=== PATIENT | male | born 1960 | race Caucasian/White ===

== ENCOUNTER 2018-12-02 05:22 | Day surgery (SDC) | payer BC, OTHER ==
[~2018-12-02] VITALS: Ht 170.2 cm; Wt 70.3 kg
[~2018-12-02 05:22] MED LIST: AMLODIPINE BESY10 MG PO; FINASTERIDE1 MG PO; LOTENSIN20 MG PO; PEPCID AC10 MG PO; ZYRTEC10 M5 PO
[2018-12-02 11:43] LABS: HEMATOCRIT 43.6 % (42.0-52.0); HEMOGLOBIN 15.1 gm/dL (14.0-18.0)
[2018-12-02 12:17] VITALS: BP 135/83
[2018-12-02] MEDS ORDERED: SENOKOT-S TABL1 EACH PO (15:07)
[2018-12-02] MEDS ORDERED: NEURONTIN 300300 M1 PO (15:07)
[2018-12-02] MEDS ORDERED: NORCO 5-325 TA1 EACH PO (15:07)
[2018-12-02 15:29] VITALS: BP 135/83
--- NOTE | 2018-12-02 18:05 | EKG ---
[address] [address] ELECTROCARDIOGRAM REPORT Name: ZACH KENDRICK Room #: DEP [facility]#: [id number] ������������������ Admission: 12/02/18 ������������������ Attend Phys: Kd Fernando MD, Discharge: 12/02/18 ������������������ Date of : 62 Report #: [id number] ����������������������������������������������������������������� [id number] THIS REPORT FOR: //name// [facility] Test Date: 2018-12-02 Test Time: 11:41:10 Pat Name: ZACH KENDRICK Department: Room: [facility] 4 Gender: M [employer]ent Acquisition Director: SANDHYA : 1960 Requested By: Kd Fernando Order Number: [id number] MD: Daniele Magallanes Measurements Intervals [place] Rate: 57 P: 62 [place]: 179 QRS: 43 QRSD: 86 T: 18 QT: 408 QTc: 398 Interpretive Statements Sinus bradycardia Otherwise no significant abnormality No previous ECG available for comparison Electronically Signed On 12-02-2018 18:05:31 CDT by Daniele Magallanes [email or web address] ��������������������������������������������� <ELECTRONICALLY SIGNED> ���������������������������������������� By: Daniele Magallanes MD, [facility] ��������������������������������������������� 12/02/18 1805 1141 1141 Daniele Magallanes MD, FACC /EPI
--- NOTE | 2018-12-07 10:07 | PATH ---
[facility] [address] [place] [address] PATHOLOGY RPT PROCEDURE Name: MICHELE CORDON Room #: DEP [facility] M.R.#: [id number] ������������������ Admission: 12/02/18 ������������������ Date of : 62 Discharge: 12/02/18 Report #: [id number] Path Case #: [id number] [facility] Accession Number: [id number] . 01 Material submitted: . LEFT CORD LIPOMA . 01 Clinical history: . Bilateral inguinal hernia . 02 Diagnosis: Mature adipose tissue, left cord lipoma, excision: - Compatible with a lipoma. - Adjacent fibrovascular connective tissue showing congestion. . (IUV:mml; 12/03/2018) QLM/12/03/2018 . 02 Electronically signed: . Terri Molina MD, Pathologist NPI- [id number] . 01 Gross description: . The specimen is received in formalin, labeled "Michele Cordon, left cord lipoma", is an irregular fragment of yellow-rodas, adipose tissue partially partially covered by a thin butler-white membrane measuring 4.2 x 2.2 x 1.0 cm. No discrete necrosis is identified. District Or District Office Director tissue is submitted in A1. (SWS; 12/02/2018) SHS/SHS . 02 Pathologist provided ICD-10: D17.6 . 02 CPT . 014052 Specimen Comment: A courtesy copy of this report has been sent to Specimen Comment: [phone], , . Specimen Comment: Report sent to DR SALDAÑA,DR FELIPE / DR YEN Specimen Comment: A duplicate report has been generated due to demographic updates. Performed at: [address] [place] [id number] [id number] MD Yao Cruz MD Phone: [phone] Performed at: [address] [address] PATHOLOGY RPT PROCEDURE Name: MICHELE CORDON Room #: DEP [facility].R.#: [id number] ������������������ Admission: 12/02/18 ������������������ Date of : 62 Discharge: 12/02/18 Report #: [id number] Path Case #: [id number] [address] [place] [address] [id number] MD Terri Molina MD Phone: [phone]
--- NOTE | 2018-12-15 09:00 | O ---
[facility] [place] [address] OPERATIVE REPORT Name: ZACH KENDRICK Room #: DEP [facility] M.R.#: [id number] Admission: 12/02/18 ������������������ Attend Phys: Kd Fernando MD, Discharge: 12/02/18 ������������������ Date of : 62 Report #: [id number] THIS REPORT FOR: //name// CC: Kd Crawfordtha Perez DATE OF SERVICE: 12/02/2018 PREOPERATIVE DIAGNOSIS: Bilateral inguinal hernias. POSTOPERATIVE DIAGNOSIS: Bilateral inguinal hernias. PROCEDURE: Laparoscopic totally extraperitoneal (TEP) repair of bilateral indirect inguinal hernias with mesh. SURGEON: Kd Fernando MD MET[employer] P[employer]CH PRESS OPERATOR: Erick Chen MD ANESTHESIA: General endotracheal anesthesia. ESTIMATED BLOOD LOSS: Minimal (less than 5 mL). COMPLICATIONS: None appreciated. SPECIMENS: Left cord lipoma. INDICATIONS: The patient is a 58-year-old male, who presented with significant bulging and discomfort in bilateral groins, worse on the patient's right versus left side. After thorough evaluation, he had easily palpable bilateral inguinal hernias and as such, indication was for the above-mentioned procedure today. DESCRIPTION OF PROCEDURE: After explaining the risks, benefits and alternatives of the procedure with the patient in detail in the preoperative holding area and obtaining written consent, the patient was brought to the operating room and placed supine on the operating room table. After conducting a thorough timeout procedure verifying correct patient and procedure, the patient was given general endotracheal anesthesia. Once adequate anesthesia was obtained, his SCDs were hooked up to pneumatic compression device. He was given a preoperative dose of antibiotics in line with the SCIP protocol. The patient's abdomen was prepped and draped in standard surgical sterile fashion. A 5 mL of 0.5% Marcaine with epinephrine were used to anesthetize the skin in the infraumbilical location just to left of midline. A #15 bladed scalpel was used to create a 1.5 cm curvilinear incision at this location. Electrocautery was used to carry this down through the skin and subcutaneous tissues to ensure hemostasis until I [address] [address] OPERATIVE REPORT Name: ZACH KENDRICK Room #: DEP [facility] M.R.#: [id number] Admission: 12/02/18 ������������������ Attend Phys: Kd Fernando MD, Discharge: 12/02/18 ������������������ Date of : 62 Report #: [id number] arrived upon the anterior rectus fascia. The fascia was scored transversely revealing the left rectus muscle posteriorly. The rectus muscle was swept laterally and I placed the Spacemaker Plus balloon dissector device in an immediate retrorectus location, slid this down to the pubic tubercle. The obturator for the Spacemaker plus port was removed and the preperitoneal space was fully developed under direct vision with the balloon hand insufflator using a 10 mm 0-degree laparoscope. Once preperitoneal space was developed, the laparoscope was removed, the balloon was deflated and removed and the preperitoneal space was fully insufflated to 15 mmHg using carbon dioxide gas. The laparoscope was changed to a 10 mm 30-degree laparoscope, which was reintroduced through the Spacemaker plus port. We had complete hemostasis in the preperitoneal space. I now placed two 5 mm working trocars down the lower midline under direct vision after anesthetizing the skin at each location with 5 mL of 0.5% Marcaine with epinephrine, I had created small skin nicks. We turned our attention to the patient's left side first. The patient was placed in Trendelenburg with left side elevated. I now dissected out the left groin using a combination of blunt dissection and hook electrocautery to sweep the peritoneum posteriorly and superiorly. Hernia sac was seen to run with the cord structures. This was stripped back down into an intra-abdominal location and carried this low on the pelvic brim as possible. All cord structures were identified, preserved and uninjured throughout. A piece of ProGrip mesh tailored to the left groin was rolled up, placed in preperitoneal space where it was maneuvered into position. This was pressed into the abdominal wall and then unrolled inferiorly giving me excellent overlap outside the hernia defect in question. We now turned our attention to the patient's right side. In similar fashion, the patient was elevated with right side up and I dissected out the right groin space. The hernia sac was slightly larger and I was able to reduce this in full as low in the pelvic brim as possible once again. Again, all cord structures were identified, preserved and uninjured throughout. A piece of ProGrip mesh this time tailored to the right groin was rolled up, placed in the preperitoneal space where it was maneuvered into position. It was unrolled inferiorly again giving us excellent overlap outside the hernia defect in question. One final evaluation of the intra-abdominal domain showed no further evidence of pathology. We had complete hemostasis. Spacemaker plus port was deflated and removed. The preperitoneal space was fully desufflated. We had no pneumoperitoneum noted. I now proceeded to close the anterior rectus fascial defect using two separate [id number] sutures using 0 PDS suture. A 4-0 Monocryl was used in a standard subcuticular fashion for all skin incisions and Dermabond glue was applied to all skin wounds. At the end of the procedure; all instrument, needle and sponge counts were correct. The patient tolerated the procedure without incident, was awakened in the operating room and transitioned to the recovery room in stable condition with no apparent complications. ��������������������������������������������� <ELECTRONICALLY SIGNED> ���������������������������������������� By: Kd Fernando MD, FACS ��������������������������������������������� 12/15/18 0900 1621 1655 Kd Fernando MD, FACS /nt
== END 2018-12-02 16:20 | disposition home or self-care (01) ==
LOC: TBA 05:22 → OR 05:22 → TBA 05:23 → OR 12:48
PROVIDERS: Surgery
DX: K40.20 Bilateral inguinal hernia, without obstruction or gangrene, not specified as recurrent (principal); D17.6 Benign lipomatous neoplasm of spermatic cord; I10 Essential (primary) hypertension; K21.9 Gastro-esophageal reflux disease without esophagitis; Z98.890 Other specified postprocedural states; Z79.899 Other long term (current) drug therapy
CPT/HCPCS: 50010; 50101; 50249; 50411; 50555; 50944; 51489; 51824; 52265; 52266; 54118; 54169; 55245; 56525; 56526; 62110; 62900; 70005

== ENCOUNTER → 2021-07-02 | Outpatient (CLI) | payer BC, OTHER ==
[~2021-07-02] MED LIST changes: +NEURONTIN 300300 M1 PO; +NORCO 5-325 TA1 EACH PO; +SENOKOT-S TABL1 EACH PO
== END ==
LOC: SJCVCIMAG 10:50
PROVIDERS: ATTEND Family Medicine
DX: I08.0 Rheumatic disorders of both mitral and aortic valves (principal); I25.10 Atherosclerotic heart disease of native coronary artery without angina pectoris